=== PATIENT | male | born 1950 | race Caucasian/White ===

== ENCOUNTER 2017-04-07 19:40 | Emergency (ER) | payer MEDICARE, MEDICAID ==
[2017-04-07] MEDS ORDERED: Aspirin 81 MG Tab.Chew PO ONE (19:58)
--- NOTE | 2017-04-07 20:12 | EDM.PDOC ---
ED HPI GENERAL MEDICAL PROBLEM - General Chief Complaint: Chest Pain Stated Complaint: CP Time Seen by Provider: 04/07/17 19:57 Source of Information: Reports: Patient History Limitations: Reports: No Limitations - History of Present Illness INITIAL COMMENTS - FREE TEXT/NARRATIVE: This patient is a 66 year old male that presents to the ER. Patient reports that when he woke up this morning he had indigestion in his chest. He reports it is in the epigastric region and the left part of his chest. He describes as "indigestion, pain." The patient reports when he woke this morning he took some Rolaids and it did help some. He reports it brought his pain to about a 1/10, from 3/10. Patient reports then around 5 o clock he was in town and pain was a 3 /10 again, with same pain. He said he was hungry then also, so he went and ate. He reports that after he ate, he burped and his pain again decreased to a 1/10. Patient does report that he has felt nauseated with the pain sensation, but reports this has resolved after he ate dinner at 5 o clock. The patient reports that all day he has been mild "disoriented", he describes this as mildly lightheaded sensation. He reports that since eating this evening, this sensation has completely resolved. The patient reports that currently here in the ER his pain is a 1/10 scale. He reports that feels good right now in the ER , best he has felt all day. 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 Patient does not recall what those felt like. Patient denies smoking or ETOH. Patient is fully alert and oriented. Patient denies luevano, dizziness, v, d, f, soa, abd pain, urinary/bowel changes, rashes. Onset: Today Onset Date: 04/07/17 Onset Time: 09:00 Location: Reports: Chest Quality: Reports: Other ("indigestion, pain.") Severity: Mild Improves with: Reports: Other (burped and Rolaids) Worsens with: Reports: None Associated Symptoms: Reports: No Other Symptoms, Chest Pain, Nausea/Vomiting. Denies: Confusion, Cough, cough w sputum, Diaphoresis, Fever/Chills, Headaches, Loss of Appetite, Malaise, Rash, Seizure, Shortness of Breath, Syncope, Weakness Chest Pain Score (Numeric/FACES): 1 - Related Data Allergies Allergy/AdvReac Type Severity Reaction Status Date / Time milk Allergy Cannot Verified 04/07/17 19:56 Remember naproxen Allergy Cannot Verified 04/07/17 19:56 Remember wool Allergy Cannot Verified 04/07/17 19:56 Remember Home Meds: Home Meds Fenofibrate 160 mg PO DAILY 04/07/17 [History] Gabapentin [Neurontin] 300 mg PO TID 04/07/17 [History] Hydrochlorothiazide 12.5 mg PO DAILY 04/07/17 [History] Lisinopril 5 mg PO DAILY 04/07/17 [History] Metoprolol Succinate 25 mg PO DAILY 04/07/17 [History] Potassium Chloride 10 meq PO DAILY 04/07/17 [History] amLODIPine Besylate [Norvasc] 2.5 mg PO DAILY 04/07/17 [History] metFORMIN HCl [Metformin HCl] 1,000 mg PO BID 04/07/17 [History] traMADol HCl [Tramadol HCl] 50 mg PO Q6H PRN 04/07/17 [History] ED ROS GENERAL - Review of Systems Review Of Systems: See Below Constitutional: Reports: No Symptoms HEENT: Reports: No Symptoms Respiratory: Reports: No Symptoms Cardiovascular: Reports: Chest Pain (improving), Lightheadedness (mild, but improved now. ) Endocrine: Reports: No Symptoms GI/Abdominal: Reports: Nausea, Other (burped). Denies: Vomiting : Reports: No Symptoms Musculoskeletal: Reports: No Symptoms Skin: Reports: No Symptoms Neurological: Reports: No Symptoms Psychiatric: Reports: No Symptoms Hematologic/Lymphatic: Reports: No Symptoms Immunologic: Reports: No Symptoms ED EXAM, GENERAL - Physical Exam Exam: See Below Exam Limited By: No Limitations General Appearance: Alert, WD/WN, No Apparent Distress Eye Exam: Bilateral Eye: Normal Inspection, PERRL Ears: Normal External Exam, Normal Canal, Hearing Grossly Normal, Normal TMs Ear Exam: Bilateral Ear: Auricle Normal, Canal Normal, TM normal Nose: Normal Inspection, Normal Mucosa, No Blood Throat/Mouth: Normal Inspection, Normal Lips, Normal Teeth, Normal Gums, Normal Oropharynx, Normal Voice, No Airway Compromise Head: Atraumatic, Normocephalic Neck: Normal Inspection, Supple, Non-Tender, Full Range of Motion Respiratory/Chest: No Respiratory Distress, Lungs Clear, Normal Breath Sounds, No Accessory Muscle Use, Chest Non-Tender Cardiovascular: Normal Peripheral Pulses, Regular Rate, Rhythm, No Edema, No Gallop, No JVD, No Murmur, No Rub Peripheral Pulses: 2+: Carotid (L), Carotid (R), Radial (L), Radial (R), Posterior Tibial (L), Posterior Tibial (R) GI/Abdominal: Soft, Non-Tender, No Organomegaly, No Distention, No Abnormal Bruit, No Mass, Pelvis Stable Back Exam: Normal Inspection, Full Range of Motion Extremities: Normal Inspection, Normal Range of Motion, Non-Tender, No Pedal Edema, Normal Capillary Refill Neurological: Alert, Oriented, CN II-XII Intact, Normal Cognition, Normal Gait, No Motor/Sensory Deficits. No: Inattentive, Confused, Disoriented, Slow to Respond, Unresponsive, Memory Loss Remote Events, Memory Loss Recent Events, Abnormal Gait, Sensory/Motor Deficit Psychiatric: Normal Affect, Normal Mood Skin Exam: Warm, Dry, Intact, Normal Color, No Rash Lymphatic: No Adenopathy EKG INTERPRETATION EKG Date: 04/07/17 Time: 19:45 Rhythm: NSR Rate (Beats/Min): 63 [place]: Normal P-Wave: Present QRS: Normal ST-T: Normal QT: Normal Comparison: NA - No Prior EKG Course - Vital Signs Last Recorded V/S: Last Vital Signs Temp 97.5 F 04/07/17 19:46 Pulse 61 04/07/17 20:14 Resp 16 04/07/17 19:59 BP 149/83 H 04/07/17 20:14 Pulse Ox 99 04/07/17 19:59 - Orders/Labs/Meds Orders: Active Orders 24 hr Category Date Time Status Chest 2V [CR] Stat Exams 04/07/17 19:58 Taken Labs: Laboratory Tests 04/07/17 04/07/17 04/07/17 Range/Units 20:00 20:00 20:00 WBC 8.0 (5.0-10.0) 10^3/uL RBC 4.66 (4.50-6.00) 10^6/uL Hgb 14.2 (14.0-18.0) g/dL Hct 40.8 (40.0-54.0) % MCV 87.6 (82.0-94.0) fL MCH 30.5 (27.0-32.0) pg MCHC 34.8 (33.0-38.0) g/dL RDW Coeff of Azul 12.8 (11.0-15.0) % Plt Count 166 (150-400) 10^3/uL Neut % (Auto) 73.5 (35-85) % Lymph % (Auto) 20.2 (10-55) % [place] % (Auto) 4.5 (0-16) % Eos % (Auto) 1.6 (0-5) % Baso % (Auto) 0.2 (0-3) % Neut # (Auto) 5.88 (1.80-7.00) 10^3/uL Lymph # (Auto) 1.62 (1.00-4.80) 10^3/uL [place] # (Auto) 0.36 (0.00-0.80) 10^3/uL Eos # (Auto) 0.13 (0.00-0.45) 10^3/uL Baso # (Auto) 0.02 10^3/uL PT 11.5 (9.7-12.3) SEC INR 1.06 (0.92-1.18) APTT 28.0 (24.5-30.9) SEC Sodium 138 (136-145) mEq/L Potassium 3.7 (3.5-5.0) mEq/L Chloride 99 (98-106) mEq/L Carbon Dioxide 28 (21-32) mmol/L BUN 16 (7-18) mg/dL Creatinine 1.2 (0.7-1.3) mg/dL Est Cr Clr Drug Dosing 63.37 mL/min Estimated GFR (MDRD) > 60 (>=60) mL/min Glucose 160 H (75-99) mg/dL Calcium 9.5 (8.4-10.1) mg/dL Lactate Dehydrogenase 164 (100-190) U/L Creatine Kinase 190 (35-232) U/L Troponin I < 0.017 (0.00-0.06) ng/mL 04/07/17 Range/Units 22:05 WBC (5.0-10.0) 10^3/uL RBC (4.50-6.00) 10^6/uL Hgb (14.0-18.0) g/dL Hct (40.0-54.0) % MCV (82.0-94.0) fL MCH (27.0-32.0) pg MCHC (33.0-38.0) g/dL RDW Coeff of Azul (11.0-15.0) % Plt Count (150-400) 10^3/uL Neut % (Auto) (35-85) % Lymph % (Auto) (10-55) % [place] % (Auto) (0-16) % Eos % (Auto) (0-5) % Baso % (Auto) (0-3) % Neut # (Auto) (1.80-7.00) 10^3/uL Lymph # (Auto) (1.00-4.80) 10^3/uL Deuel # (Auto) (0.00-0.80) 10^3/uL Eos # (Auto) (0.00-0.45) 10^3/uL Baso # (Auto) 10^3/uL PT (9.7-12.3) SEC INR (0.92-1.18) APTT (24.5-30.9) SEC Sodium (136-145) mEq/L Potassium (3.5-5.0) mEq/L Chloride (98-106) mEq/L Carbon Dioxide (21-32) mmol/L BUN (7-18) mg/dL Creatinine (0.7-1.3) mg/dL Est Cr Clr Drug Dosing mL/min Estimated GFR (MDRD) (>=60) mL/min Glucose (75-99) mg/dL Calcium (8.4-10.1) mg/dL Lactate Dehydrogenase (100-190) U/L Creatine Kinase (35-232) U/L Troponin I < 0.017 (0.00-0.06) ng/mL Meds: Medications Discontinued Medications Generic Name Dose Route Start Last Admin Trade Name Freq PRN Reason Stop Dose Admin Aspirin 324 mg 04/07/17 19:58 04/07/17 19:57 Aspirin PO 04/07/17 19:59 324 mg ONETIME ONE Administration Al Hydroxide/Mg Hydroxide 30 0 ml 04/07/17 22:15 04/07/17 22:23 ml/ Lidocaine HCl 15 ml PO 04/07/17 22:16 45 ml ONETIME ONE Administration - Radiology Interpretation Free Text/Narrative:: CXR: No infiltrate. No pulmonary edema, no cardiomegaly. - Re-Assessments/Exams Free Text/Narrative Re-Assessment/Exam: 04/07/17 20:25 Patient reports he has no lightheadedness now, no chest pain now, no nausea now. I will redraw patient second troponin, if negative will discharge home. First troponin is negative. 04/07/17 21:52 Patient reports that he is having 1/10 indigestion and burning in chest. Have ordered a GI coctail. 04/07/17 22:10 Patient 2nd troponin is negative. After GI cocktail, patient burps and then reports after that his pain is a 0/10. Will discharge. Patient to see PCP on Sunday. If pain continues may need to explore stress test vs GERD medication assistant food service manager or further workup. Educated to return to ER for worsening of condition or any other concerns. Departure - Departure Time of Disposition: 22:50 Disposition: Home, Self-Care 01 Condition: Fair Clinical Impression: Atypical chest pain Instructions: Nonspecific Chest Pain, [id number] Referrals: PCP,None [Primary Care Provider] - Forms: ED Department Discharge Additional Instructions: Followup with your primary care provider Sunday Return to the ER for worsening of condition or any emergent concerns or return of chest pain Increase fluids - My Orders Last 24 Hours: My Active Orders 04/07/17 19:58 Chest 2V [CR] Stat - Assessment/Plan Last 24 Hours: My Active Orders 04/07/17 19:58 Chest 2V [CR] Stat Plan: PLEASE SEE RN NOTE FOR PFSH.
[2017-04-07 20:19] LABS: CHLORIDE,CL 99 mEq/L (98-106); SODIUM,NA 138 mEq/L (136-145)
[2017-04-07] MEDS ORDERED: Alum Hydrox/Mag Hydrox/Simeth 30 ML, Lidocaine 2% 15 ML PO ONE ×2 (22:15)
== END 2017-04-07 22:40 | disposition home or self-care (01) ==
LOC: CC.ED 19:40
DX: R07.89 Other chest pain (principal); Z91.011 Allergy to milk products; Z88.5 Allergy status to narcotic agent; Z79.899 Other long term (current) drug therapy; Z79.84 Long term (current) use of oral hypoglycemic drugs
CPT/HCPCS: 36415; 71020; 80048; 82550; 83615; 84484; 85025; 85610; 85730; 99285; A9270; 93005; 93010; 99284